=== PATIENT | male | born 1960 | race Caucasian/White ===

== ENCOUNTER 2023-04-28 12:54 | Inpatient (IN) | payer OTHER ==
[2023-04-28 14:43] VITALS: BMI 23.0
[2023-04-28] MEDS ORDERED: diazePAM 5 MG TABLET PO PRN (17:47)
[2023-04-28] MEDS ORDERED: cloNIDine HCL 0.1 MG TABLET PO ONE (17:47)
[2023-04-28] MEDS ORDERED: BUPRENORPHINE HCL 150 MCG, BUPRENORPHINE HCL 75 MCG BC PRN (17:47)
[2023-04-28] MEDS ORDERED: ACETAMINOPHEN 325 MG TABLET (FP) PO PRN (17:49)
[2023-04-28] MEDS ORDERED: IBUPROFEN 600 MG TABLET (FP) PO PRN (17:49)
[2023-04-28] MEDS ORDERED: ONDANSETRON *ODT* 4 MG TABLET SL PRN (17:49)
[2023-04-28] MEDS ORDERED: BISMUTH SUBSALICYLATE 524 MG/30 ML PO PRN (17:49)
[2023-04-28] MEDS ORDERED: MAG HYDROX/AL HYDROX/SIMETH 30 ML UNIT-DOSE CUP PO PRN (17:49)
[2023-04-28] MEDS ORDERED: DICYCLOMINE HCL 10 MG CAPSULE PO PRN (17:49)
[2023-04-28] MEDS ORDERED: BENZONATATE 200 MG CAPSULE PO PRN (17:49)
[2023-04-28] MEDS ORDERED: BENZOCAINE/MENTHOL (CHLORASEPTIC ) LOZENGE MM PRN (17:49)
[2023-04-28] MEDS ORDERED: NALOXONE HCL 0.4 MG/ML VIAL IM PRN (17:49)
[2023-04-28] MEDS ORDERED: IBUPROFEN 400 MG TABLET (FP) PO PRN (17:49)
[2023-04-28] MEDS ORDERED: METHOCARBAMOL 500 MG TABLET PO PRN (17:49)
[2023-04-28] MEDS ORDERED: hydrOXYzine PAMOATE 25 MG CAPSULE (FP) PO PRN (17:49)
[2023-04-28] MEDS ORDERED: guaiFENesin 600 MG TABLET.ER (FP) PO PRN (17:49)
[2023-04-28] MEDS ORDERED: POLYETHYLENE GLYCOL (HEALTHYLAX) 3350 17 GM PACKET PO PRN (17:49)
[2023-04-28] MEDS ORDERED: LOPERAMIDE HCL 2 MG CAPSULE PO PRN (17:49)
[2023-04-28] MEDS ORDERED: NALOXONE HCL (KLOXXADO) 8 MG SPRAY NS PRN (17:49)
[2023-04-28] MEDS ORDERED: MAGNESIUM HYDROX 2400MG/30ML ORAL SUSPENSION 30 ML CUP PO PRN (17:49)
[2023-04-28] MEDS ORDERED: BUPRENORPHINE HCL 150 MCG, BUPRENORPHINE HCL 75 MCG BC ONE (18:00)
[2023-04-28] MEDS ORDERED: BUPRENORPHINE HCL 150 MCG FILM BC ONE (18:13)
[2023-04-28] MEDS ORDERED: BUPRENORPHINE HCL 75 MCG FILM BC ONE (18:13)
[2023-04-28] MEDS ORDERED: cloNIDine HCL 0.1 MG TABLET ONE (18:14)
[2023-04-28] MEDS ORDERED: cloNIDine HCL 0.1 MG TABLET PO PRN (21:47)
[2023-04-28] MEDS: MELATONIN 5 MG TABLETS PO SCH (22:29)
[2023-04-28] MEDS: THIAMINE HCL 100 MG TABLET (FP) PO SCH (22:29)
[2023-04-29] MEDS ORDERED: BUPRENORPHINE HCL 150 MCG, BUPRENORPHINE HCL 75 MCG BC PRN
[2023-04-29] MEDS: BUPRENORPHINE HCL 150 MCG, BUPRENORPHINE HCL 75 MCG BC SCH ×2 (05:56→18:11)
[2023-04-29] MEDS: PRENATAL VITAMINS W/ FOLIC ACID TABLET (FP) PO SCH (09:24)
[2023-04-29] MEDS: NICOTINE 21 MG/24 HOURS TOPICAL PATCH TD SCH (09:24)
[2023-04-29] MEDS ORDERED: BUPRENORPHINE HCL 150 MCG FILM BC ONE (17:40)
[2023-04-29 18:04] LABS: CHLORIDE 109 mmol/L (98-107); HEMATOCRIT 33.9 % (35.4-49); HEMOGLOBIN 11.8 GM/dL (11.7-16.9); MCH 29.6 pg (25.7-33.7); MCHC 34.7 g/dl (32.0-35.9); MEAN CELL VOLUME 85.4 fl (80-96); MEAN PLT VOLUME 8.4 fl (7.5-11.1); PLATELET COUNT 143 10^3/uL (134-434); RBC 3.98 M/mm3 (4.00-5.60); RDW 15.2 % (11.9-15.9); SODIUM 139 mmol/L (136-145); WHITE BLOOD COUNT 6.1 K/mm3 (4.0-10.0)
[2023-04-29 18:11] LABS: ALBUMIN 3.2 g/dl (3.4-5.0); GLUCOSE,RANDOM 113 mg/dL (74-106)
[2023-04-29 18:12] LABS: ANION GAP 7 mmol/L (4-13); BLOOD UREA NITROGEN 25.5 mg/dL (7-18); CALCIUM 8.1 mg/dL (8.5-10.1); CO2 23 mmol/L (21-32)
[2023-04-29 18:14] LABS: CREATININE 1.2 mg/dL (0.55-1.3); SGPT/ALT 18 U/L (13-61)
[2023-04-29 18:15] LABS: SGOT/AST 17 U/L (15-37)
[2023-04-29 18:16] LABS: TOT PROT 6.2 g/dl (6.4-8.2)
[2023-04-29 18:17] LABS: ALK PHOS 75 U/L (45-117)
[2023-04-29 18:18] LABS: BILIRUBIN,TOTAL 0.8 mg/dL (0.2-1)
[2023-04-29] MEDS: MINERAL OIL/PET HY-PHL TOPICAL OINTMENT 454 GM JAR TP SCH (22:36)
[2023-04-29] MEDS: THIAMINE HCL 100 MG TABLET (FP) PO SCH (22:37)
[2023-04-29] MEDS: MELATONIN 5 MG TABLETS PO SCH (22:37)
[2023-04-30] MEDS: BUPRENORPHINE HCL 450 MCG FILM BC SCH ×2 (05:24→17:10)
[2023-04-30] MEDS: MINERAL OIL/PET HY-PHL TOPICAL OINTMENT 454 GM JAR TP SCH ×2 (10:07→22:13)
[2023-04-30] MEDS: NICOTINE 21 MG/24 HOURS TOPICAL PATCH TD SCH (10:07)
[2023-04-30] MEDS: PRENATAL VITAMINS W/ FOLIC ACID TABLET (FP) PO SCH (10:07)
[2023-04-30] MEDS: LIDOCAINE 5% TOPICAL PATCH TP SCH (11:37)
[2023-04-30] MEDS ORDERED: LIDOCAINE PATCH REMOVAL MC SCH (22:00)
[2023-04-30] MEDS: THIAMINE HCL 100 MG TABLET (FP) PO SCH (22:11)
[2023-04-30] MEDS: MELATONIN 5 MG TABLETS PO SCH (22:12)
[2023-04-30] MEDS: LIDOCAINE PATCH REMOVAL MC SCH (22:13)
[2023-05-01] MEDS: BUPRENORPHINE/NALOXONE 4 MG/1 MG FILM PACKET SL SCH ×2 (05:33→17:44)
[2023-05-01] MEDS: LIDOCAINE 5% TOPICAL PATCH TP SCH (10:07)
[2023-05-01] MEDS: PRENATAL VITAMINS W/ FOLIC ACID TABLET (FP) PO SCH (10:07)
[2023-05-01] MEDS: NICOTINE 21 MG/24 HOURS TOPICAL PATCH TD SCH (10:07)
[2023-05-01] MEDS: MINERAL OIL/PET HY-PHL TOPICAL OINTMENT 454 GM JAR TP SCH ×2 (10:09→22:20)
[2023-05-01] MEDS: MELATONIN 5 MG TABLETS PO SCH (22:20)
[2023-05-01] MEDS: THIAMINE HCL 100 MG TABLET (FP) PO SCH (22:20)
[2023-05-01] MEDS: LIDOCAINE PATCH REMOVAL MC SCH (22:20)
[2023-05-02] MEDS ORDERED: BUPRENORPHINE/NALOXONE 8 MG/2 MG FILM PACKET SL ONE (06:00)
[2023-05-02 06:39] VITALS: TEMP 97.3
[2023-05-02 09:25] VITALS: BP 122/80; PULSE 84; RESP 20
[2023-05-02] MEDS: MINERAL OIL/PET HY-PHL TOPICAL OINTMENT 454 GM JAR TP SCH (09:31)
[2023-05-02] MEDS: PRENATAL VITAMINS W/ FOLIC ACID TABLET (FP) PO SCH (09:31)
[2023-05-02] MEDS: LIDOCAINE 5% TOPICAL PATCH TP SCH (09:32)
[2023-05-02] MEDS: NICOTINE 21 MG/24 HOURS TOPICAL PATCH TD SCH ×2 (09:32→09:58)
== END 2023-05-02 10:27 | disposition home or self-care (01) | DRG 773 ==
LOC: SUATTDRO 12:54 → YASAS 12:54 → Y3N 17:10
PROVIDERS: ADMIT Allergy & Immunology; ATTEND Surgery
PROC: HZ2ZZZZ Detoxification Services for Substance Abuse Treatment (ICD-10-PCS; principal; 2023-04-28)
DX: F11.23 Opioid dependence with withdrawal (principal); F14.20 Cocaine dependence, uncomplicated; F17.210 Nicotine dependence, cigarettes, uncomplicated; H91.92 Unspecified hearing loss, left ear; Z85.528 Personal history of other malignant neoplasm of kidney; Z90.5 Acquired absence of kidney; Z91.81 History of falling; Z99.89 Dependence on other enabling machines and devices
CPT/HCPCS: 36415; 71046-TC-FY; 80053; 80307; 84520; 85027; 86593; 86780; 86803; 87522; 87635; 93005; 93010